=== PATIENT | male | born 1960 | race Caucasian/White ===

== ENCOUNTER 2018-04-08 13:33 | Emergency (ER) | payer OTHER ==
[~2018-04-08 13:33] MED LIST: Sodium Chloride 0.9% 1,000 ML BAG ONE
[2018-04-08] MEDS ORDERED: Morphine 10 MG/ML VIAL ONE ×3 (13:56→14:25)
[2018-04-08] MEDS ORDERED: Ondansetron ODT 4 MG TAB ONE (14:02)
[2018-04-08] MEDS ORDERED: Ketorolac Tromethamine 60 MG/2 ML VIAL ONE (14:06)
[2018-04-08] MEDS ORDERED: Haloperidol Lactate 5 MG/ML VIAL ONE (14:31)
[2018-04-08] MEDS ORDERED: Ketamine 50 MG/ML VIAL ONE ×2 (14:41→15:02)
[2018-04-08 14:43] LABS: Bilirubin Negative (Negative); Blood, Urine Negative (Negative); Clarity Clear (Clear); Glucose, Urine (Dipstick) Negative (Negative); Leukocyte Negative (Negative); Nitrite Negative (Negative); Protein, Urine (Dipstick) Negative (Neg-Trace)
[2018-04-08] MEDS ORDERED: Fentanyl 100 MCG/2 ML VIAL ONE ×2 (15:59→16:07)
[2018-04-08] MEDS ORDERED: Lorazepam 2 MG/ML VIAL ONE (16:07)
[2018-04-08 16:08] LABS: ALT (SGPT) 65 U/L (8-55); AST (SGOT) 31 U/L (5-34); Alkaline Phosphatase 107 U/L (40-150); Anion Gap 22 mmol/L (10-20); BUN (Urea Nitrogen) 29 mg/dL (8.4-25.7); Bilirubin, Total 0.9 mg/dL (0.2-1.2); Calc. Creatinine Clearance 0 mL/min (70-130); Calcium 9.3 mg/dL (7.8-10.44); Carbon Dioxide 14 mmol/L (22-29); Chloride 105 mmol/L (98-107); Estimated GFR-MDRD 57; Globulin 3.2 g/dL (2.4-3.5); Glucose 218 mg/dL (70-105); Potassium 4.2 mmol/L (3.5-5.1); Protein, Total 7.2 g/dL (6.0-8.3); Sodium 137 mmol/L (136-145)
--- NOTE | 2018-04-08 16:28 | RAD ---
CHEST ONE VIEW: 04/08/18 HISTORY: Altered mental status. COMPARISON: None. FINDINGS: Patient intubated. Endotracheal tube tip in good position just below the level of the clavicles. No f ocal air space consolidation, pneumothorax or effusion. The cardiac silhouette is within normal limit s. Mild degenerative changes left shoulder. IMPRESSION: 1. No acute intrathoracic abnormality. 2. Endotracheal tube tip in good position just below the level of the clavicles 4.5 cm above the ellen. POS: [facility]
[2018-04-08 16:30] LABS: #Lymphocytes 0.5 thou/uL (1.20-3.40); #Monocytes 0.3 thou/uL (0.11-0.59); #Neutrophils 5.2 thou/uL (1.40-6.50); %Basophils 0.7 % (0.0-1.0); %Eosinophils 0.3 % (0.0-10.0); %Lymphocytes 8.1 % (21.0-51.0); %Monocytes 4.4 % (0.0-10.0); %Neutrophils 86.5 % (42.0-75.0); Hemoglobin 12.5 g/dL (14.0-18.0); Mean Corpuscular HGB CONC 31.6 g/dL (32.0-36.0); Mean Corpuscular Hemoglobin 27.4 pg (27.0-31.0); Mean Corpuscular Volume 86.7 fL (78.0-98.0); Mean Platelet Volume 6.3 fL (7.4-10.4); PLT Morphology Comment Appears Decreased; Platelet Count 100 thou/uL (130-400); Red Blood Cell (RBC) Count 4.57 mill/uL (4.70-6.10)
[2018-04-08] MEDS ORDERED: Cefepime 1 GM VIAL ONE (16:42)
--- NOTE | 2018-04-08 17:06 | CT ---
CT BRAIN WITHOUT CONTRAST: 04/08/18 HISTORY: Altered mental status. COMPARISON: None. FINDINGS: No acute territorial infarct or hemorrhage. No midline shift or mass effect. Ventricular size and ext ra-axial CSF spaces are normal. Calvarium is intact. There is extensive mucosal sinus disease of the left maxillary sinus. There appe ars to be erosion of the medial wall left maxillary sinus and chronic osteitis. There is concern for a subperiosteal abscess medial left orbit at the level of the ethmoids. IMPRESSION: 1. No acute intracranial abnormality. 2. Chronic severe left maxillary sinusitis with erosions in the medial maxillary wall, extensive thickening of the left anterior ethmoid as well as the subperiosteal abscess on the medial left orbi t. Ophthalmology consultation is recommended. Code CR = Dr. Ortega, 4:50 p.m.
--- NOTE | 2018-04-08 17:10 | CT ---
CT ABDOMEN AND PELVIS WITHOUT CONTRAST 04/08/18 HISTORY: Altered mental status. COMPARISON: None. FINDINGS: Atelectatic changes lung bases. No pericardial effusion. No dilated loops of large or small bowel. No significant free intraperitoneal gas or fluid. Posterior urinary bladder diverticulum. Punctate calculus superior right renal collecting system. Spleen is unremarkable. Noncontrast evaluat ion of the liver is unremarkable. Multiple surgical clips on the right liver. No retroperitoneal adenopathy. Mild degenerative changes of both hips. Moderate degenerative change o f the pubic symphysis. IMPRESSION: 1. No acute inflammatory process in abdomen or pelvis. 2. Punctate nonobstructive calculus superior pole right kidney. POS: [facility]
[2018-04-11 14:19] LABS: Base Excess-Venous -2.8 mmol/L (0 (+/- 2.5)); Bicarbonate (HCO3v) 23.3 mmol/L (1.0-85.0); O2 Tension (PvO2) 215.2 mmHg (35.0-45.0); pH (Venous) 7.331 (7.35-7.45)
[2018-04-11 14:20] LABS: vO2 Saturation-calc 99.7 % (94-98)
[2018-04-11 14:21] LABS: Hemoglobin - Calc 15.1 g/dL (12.0-18.0)
== END 2018-04-08 17:12 | disposition short-term general hospital (02) ==
LOC: MADERS 13:33
DX: R41.82 Altered mental status, unspecified (principal); R10.9 Unspecified abdominal pain; M54.9 Dorsalgia, unspecified
CPT/HCPCS: 31500; 70450; 71045; 74176; 80053; 81003; 82330; 82435; 82803; 83605; 84132; 84295; 85014; 85025; 87086; 93005; 96372; 96374; 96375; J0692; J1630; J1885; J2060; J2270; J2930; J3010; J7050; Q0162